=== PATIENT | female | born 1965 | race Caucasian/White ===

== ENCOUNTER 2018-01-18 08:49 | Emergency (ER) | payer MEDICAID ==
[~2018-01-18] VITALS: Ht 162.6 cm; Wt 83.6 kg
[2018-01-18 09:01] VITALS: Ht 162.6 cm; Wt 83.6 kg
[2018-01-18] MEDS ORDERED: ZOLOFT50 MG PO (09:04)
[2018-01-18] MEDS ORDERED: BACTROBAN NASAL1 GM NASAL (09:26)
[2018-01-18] MEDS ORDERED: CLEOCIN HCL300 MG PO (09:26)
[2018-01-18 09:49] VITALS: BP 128/73
== END 2018-01-18 09:50 | disposition home or self-care (01) ==
LOC: D.ER 08:49
DX: J34.0 Abscess, furuncle and carbuncle of nose (principal); R09.89 Other specified symptoms and signs involving the circulatory and respiratory systems; F17.200 Nicotine dependence, unspecified, uncomplicated